=== PATIENT | female | born 1940 | race Caucasian/White ===

== ENCOUNTER 2017-10-02 09:43 | Emergency (ER) | payer MEDICARE ==
[~2017-10-02] VITALS: Ht 154.9 cm; Wt 63.5 kg
[2017-10-02] MEDS ORDERED: Bacitracin Oint UD TOPIC ONE (10:15)
[2017-10-02] MEDS ORDERED: Lidocaine 1% MPF 10mg/ml 5ml INJ ONE (10:15)
[2017-10-02] MEDS ORDERED: Bactrim-DS 1 tab ORAL ONE (10:15)
[2017-10-02 10:18] VITALS: BP 152/83
--- NOTE | 2017-10-02 10:55 | Emergency Room Report ---
History of Present Illness General Chief Complaint: Skin Rash/Abscess Source: Patient Present Illness HPI Patient presents with swelling and pain in her left middle finger. This started several days ago. She was seen by her stone gang sawyer who aspirated some clear fluid 2 days ago. Last night the finger got more swollen and painful. She could not sleep. There was no other drainage. There is no numbness. No fevers, chills, red streaks. The whole tip of the finger is painful, but more on the nail side. Pain rated 10/10, pressure and sharp aching. There is redness. No numbness. Tetanus > 10 years. No diabetes. H/O asthma. No dyspnea. Allergies: Coded Allergies: No Known Allergies (Unverified , 10/02/17) Patient History Past Medical History: see triage record Nursing Documentation-[facility] Hx Asthma: Yes Review of Systems Constitutional: Reports: see HPI Respiratory: Reports: see HPI Cardiovascular: Denies: chest pain Gastrointestinal: Denies: nausea Musculoskeletal: Reports: see HPI Skin: Reports: see HPI Neurological: Reports: see HPI Hematologic/Lymphatic: Denies: easy bleeding Physical Exam Vital Signs Date Time Temp Pulse Resp B/P (MAP) Pulse Ox O2 Delivery O2 Flow Rate FiO2 10/02/17 09:46 98.1 85 18 152/83 97 Room Air 98.1 Sp02 EP Interpretation: reviewed, normal General Appearance: well appearing, no apparent distress Head: normocephalic, atraumatic Eyes: bilateral eye normal inspection, bilateral eye PERRL ENT: hearing grossly normal, normal voice, moist mucus membranes Neck: full range of motion, supple Respiratory: no respiratory distress, speaking full sentences Cardiovascular #1: regular rate, rhythm Cardiovascular #2: 2+ radial (L) - cap fill fingertip normal Musculoskeletal: normal range of motion - slight decrease flexion due to tenseness of distal phalynx, other - no tendon tenderness with PROM however, decreased ROM of finger tip with swelling Neurologic: alert, motor strength/tone normal, sensory intact, speech normal Psychiatric: mood/affect normal Skin: other - erythema L middle finger tip Procedures Incision and Drainage Incision and Drainage : Consent: Verbal Site: L Blade Size: 11 I & D Procedure: betadine prep, sterile drapes applied, sterile dressing applied, gauze wick placed Wound Location: upper extremity Wound's Depth, Shape: superficial Wound Length (cm): 0 - 0.5 Wound Explored: contaminated - pus expressed Anesthesia: 1% Lidocaine - digital block Volume Anesthetic (ccs): 4 Splint Applied?: No Progress nail bed not involved Medical Decision Making Diagnostic Impression: Primary Impression: Abscess of finger Qualified Codes: L02.512 - Cutaneous abscess of left hand ER Course Patient with swelling and erythema with pain of L middle finger. This is not a paronychium. There is tenting of the lesion. I and D indicated. (Initially, consideration for felon, but exam against this - infection all dorsal.) Tendon not involved clinically at this time. She refuses tetanus vaccination ( risks and benefits explained). I and D performed with improvement and increased ROM. Will need close follow up. Told to return tomorrow for repeat evaluation and possible drain removal. Patient stable for outpatient observation and treatment. Last Vital Signs Date Time Temp Pulse Resp B/P (MAP) Pulse Ox O2 Delivery O2 Flow Rate FiO2 10/02/17 11:05 98.1 78 18 152/83 97 Room Air 98.1 Status: improved Disposition: HOME, SELF-CARE Condition: Improved Scripts Tramadol Hcl* (ULTRAM*) 50 Mg Tablet 50 MG ORAL Q6H PRN for For Pain, #6 TAB 0 Refills Prov: Clayton Kenney M.D. 10/02/17 Bacitracin (Bacitracin) 28.4 Gm Oint...g. 1 APPLIC TOPIC BID, #10 GM Prov: Clayton Kenney M.D. 10/02/17 Ibuprofen* (MOTRIN*) 600 Mg Tablet 600 MG ORAL Q6H PRN for For Pain, #16 TAB Prov: Clayton Kenney M.D. 10/02/17 Trimethoprim/Sulfamethoxazole 160/800* (BACTRIM DS TABLET*) 1 Each Tablet 1 TAB ORAL Q12H, #14 TAB 0 Refills Prov: Clayton Kneney M.D. 10/02/17 Referrals: NON PHYSICIAN (PCP) Clayton Kenney M.D. Oct 02, 2017 10:55
[2017-10-02] MEDS ORDERED: BACTRIM DS TAB1 EAC1 ORAL (10:58)
[2017-10-02] MEDS ORDERED: BACITRACIN15 GM TOPIC (10:58)
[2017-10-02] MEDS ORDERED: TRAMADOL HCL50 MG ORAL (10:58)
[2017-10-02] MEDS ORDERED: IBUPROFEN600 MG ORAL (10:58)
[2017-10-02 11:05] VITALS: BP 152/83
== END 2017-10-02 11:07 | disposition home or self-care (01) ==
LOC: EMR 10:12
DX: L02.512 Cutaneous abscess of left hand (principal); J45.909 Unspecified asthma, uncomplicated
CPT/HCPCS: 10060; 99283

== ENCOUNTER 2017-10-03 06:59 | Emergency (ER) | payer MEDICARE, BC ==
[~2017-10-03] VITALS: Ht 154.9 cm; Wt 63.5 kg
[~2017-10-03 06:59] MED LIST: BACITRACIN15 GM TOPIC; BACTRIM DS TAB1 EAC1 ORAL; IBUPROFEN600 MG ORAL; TRAMADOL HCL50 MG ORAL
[2017-10-03 07:09] VITALS: BP 159/77
[2017-10-03 07:31] VITALS: BP 159/77
--- NOTE | 2017-10-03 08:11 | Emergency Room Report ---
History of Present Illness General Chief Complaint: Wound Recheck/Suture Removal Source: Patient Present Illness HPI 77-year-old female presents ED for wound check. Patient is status post I and D of abscess to her left middle finger yesterday. Packing in place. Patient is here to have the wound evaluated. States she is taking antibiotics as prescribed. States pain is throbbing, 7 out of 10, nonradiating. Denies fevers or chills. Denies any discharge. No other aggravating relieving factors. Denies any other associated symptoms Allergies: Coded Allergies: No Known Allergies (Unverified , 10/02/17) Patient History Past Medical History: asthma Past Surgical History: none Pertinent Family History: none Social History: Denies: smoking, alcohol use, drug use Now: No Immunizations: UTD Reviewed Nursing Documentation: PMH: Agreed; PSxH: Agreed Nursing Documentation-PMH Hx Asthma: Yes Review of Systems All Other Systems: negative except mentioned in HPI Physical Exam Vital Signs Date Time Temp Pulse Resp B/P (MAP) Pulse Ox O2 Delivery O2 Flow Rate FiO2 10/03/17 07:02 98.0 85 18 159/77 97 Room Air 98.1 Sp02 EP Interpretation: reviewed, normal General Appearance: no apparent distress, alert, GCS 15, non-toxic Head: normocephalic Eyes: bilateral eye normal inspection, bilateral eye PERRL ENT: normal ENT inspection Neck: normal inspection Respiratory: normal inspection Cardiovascular #1: normal inspection Gastrointestinal: normal inspection Rectal: deferred Genitourinary: no CVA tenderness Musculoskeletal: swelling - L middle finger Neurologic: alert, oriented x3, responsive, motor strength/tone normal, sensory intact, speech normal Psychiatric: normal inspection Skin: other - erythema/induration L distal middle finger. packing in place dorsal aspect L middle finger. no discharge Lymphatic: normal inspection Medical Decision Making Diagnostic Impression: Primary Impression: Encounter for abscess packing removal Additional Impressions: Encounter for wound re-check Abscess of finger Qualified Codes: L02.512 - Cutaneous abscess of left hand ER Course Hospital Course 77-year-old F presents to ED for wound check. s/p I&D L middle finger abscess Clinical course Patient placed on stretcher. After initial history, physical exam reveals a elderly female in no acute distress. Dressing removed. There is some swelling and erythema to the distal aspect of the left middle finger. There is a packing in place. Patient states that appears unchanged Packing is removed. No discharge. Patient appears afebrile and nontoxic. I explained to the patient that antibiotics will take time to work and it is too soon to notice significant improvement. I will provide hand referral. patient given the option to return tomorrow for reevaluation Diagnosis - encounter for wound re-check,encounter for abscess packing removal, abscess of finger Stable and discharged to home. continue abx as directed. Followup with Hand. Return to ED if any signs of infection develop Last Vital Signs Date Time Temp Pulse Resp B/P (MAP) Pulse Ox O2 Delivery O2 Flow Rate FiO2 10/03/17 07:31 98.1 85 18 159/77 97 Room Air 98.1 Status: improved Disposition: HOME, SELF-CARE Condition: Stable Referrals: LEVI MÁRQUEZ M.D. NON PHYSICIAN (PCP) ELMO BLACKWELL Patient Instructions: Abscess, [id number] Jhon Orozco MD Oct 03, 2017 08:10
== END 2017-10-03 07:33 | disposition home or self-care (01) ==
LOC: EMR 07:17
DX: Z48.00 Encounter for change or removal of nonsurgical wound dressing (principal); L02.512 Cutaneous abscess of left hand
CPT/HCPCS: 99282

== ENCOUNTER 2018-04-02 14:48 | Emergency (ER) | payer MEDICARE, BC ==
[~2018-04-02] VITALS: Ht 154.9 cm; Wt 65.8 kg
[2018-04-02] MEDS ORDERED: NKM (14:53)
[2018-04-02 15:00] VITALS: BP 151/79
--- NOTE | 2018-04-02 15:00 | NUR ---
ED Nurse Note: Pt walked in to ER c/o rash on chest area which started this morning and itchness. pt aao x4 and calm and cooperative. skin clean and intact beside rash on chest.
--- NOTE | 2018-04-02 15:28 | Emergency Room Report ---
History of Present Illness General Chief Complaint: Skin Rash/Abscess Source: Patient Present Illness HPI Patient presents with rash on her abdomen and back. She has taken benadryl and this doesn't seem to affect the rash. She denies itching. No fevers, chills, difficulty swallowing, nausea, vomiting, joint pain, dizziness. This appeared yesterday and has worsened. She had a cardiac angiogram . She had this because of family history of heart disease rather than any chest symptoms. Allergy exposure ROS negative. H/O asthma - no wheezing. Seen by me last year with finger abscess which needed surgery. This has healed. Allergies: Coded Allergies: No Known Allergies (Unverified , 10/02/17) Patient History Past Medical History: see triage record Social History: Denies: smoking Social History Narrative from [place] - retired Last Menstrual Period: menopause Reviewed Nursing Documentation: PMH: Agreed; PSxH: Agreed Nursing Documentation-PMH Past Medical History: No History, Except For Hx Asthma: Yes Review of Systems All Other Systems: negative except mentioned in HPI Physical Exam Vital Signs Date Time Temp Pulse Resp B/P (MAP) Pulse Ox O2 Delivery O2 Flow Rate FiO2 04/02/18 14:51 97.9 81 18 191/91 97 Room Air Sp02 EP Interpretation: reviewed, normal General Appearance: well appearing, no apparent distress, GCS 15 Head: normocephalic, atraumatic Eyes: bilateral eye normal inspection, bilateral eye PERRL ENT: hearing grossly normal, no angioedema, normal voice Neck: full range of motion, supple Respiratory: chest non-tender, lungs clear, normal breath sounds, no respiratory distress, speaking full sentences Cardiovascular #1: normal inspection, regular rate, rhythm, no edema Cardiovascular #2: 2+ radial (R) Gastrointestinal: normal inspection Genitourinary: no CVA tenderness Musculoskeletal: back normal, digits/nails normal, gait/station normal, normal range of motion, no calf tenderness Neurologic: alert, oriented x3, normal gait, grossly normal Psychiatric: mood/affect normal Skin: other - maculopapular rash trunk, min erythema of lesions Medical Decision Making Diagnostic Impression: Primary Impression: Adverse reaction to contrast media Qualified Codes: T50.8X5A - Adverse effect of diagnostic agents, initial encounter ER Course Patient presents with maculopapular rash beginning 2 days after cardiac angiogram. DDX: allergic reaction, pityriasis rosea, intertrigo amongst others. Not anaphylaxis and not involving airway. Temporally, most likely contrast allergy. Patient does not want to take prednisone (but convinced to take at least one dose). Discussed need for follow up and consideration for checking renal function. She is planning on seeing her MD tomorrow. Patient stable for outpatient observation and treatment. Last Vital Signs Date Time Temp Pulse Resp B/P (MAP) Pulse Ox O2 Delivery O2 Flow Rate FiO2 04/02/18 15:39 98.2 75 20 152/79 100 Room Air Status: unchanged Disposition: HOME, SELF-CARE Condition: Stable Scripts Hydrocortisone/Aloe Vera 1%* (HYDROCORTISONE-ALOE 1% CREAM*) Y Cr 1 APPLIC TOPIC Q6H PRN for Itching, #30 GM Prov: Clayton Kenney MD 04/02/18 Diphenhydramine Hcl* (BENADRYL*) 25 Mg Capsule 25 MG ORAL Q6H PRN for Itching, #16 CAP Prov: Clayton Kenney MD 04/02/18 Clayton Kenney MD Apr 02, 2018 15:28
[2018-04-02] MEDS ORDERED: BENADRYL25 MG ORAL (15:33)
[2018-04-02] MEDS ORDERED: HYDROCORTISONE-30 GM TOPIC (15:33)
[2018-04-02 15:39] VITALS: BP 151/79
--- NOTE | 2018-04-02 15:41 | NUR ---
ER DISCHARGE NOTE: Patient is cleared to be discharged per ERMD, pt is aox4, on room air, with stable vital signs. pt was given dc and prescription instructions, pt was able to verbalize understanding, pt id band was removed. pt is able to ambulate with steady gait. pt took all belongings.
== END 2018-04-02 18:30 | disposition home or self-care (01) ==
LOC: EMR 18:06
DX: R21 Rash and other nonspecific skin eruption (principal); T50.8X5A Adverse effect of diagnostic agents, initial encounter; Y92.9 Unspecified place or not applicable
CPT/HCPCS: 99282; J7512

== ENCOUNTER → 2019-12-01 | Emergency (ER) | payer MEDICARE, BC ==
[~2019-12-01] VITALS: Ht 154.9 cm; Wt 62.6 kg
[~2019-12-01] MED LIST changes: +BENADRYL ALLERG25 M1 PO; +BENADRYL25 MG ORAL; +HYDROCORTISONE-30 GM TOPIC; +NKM; +PREDNISONE20 MG ORAL
--- NOTE | 2019-12-01 15:16 | NUR ---
ED Nurse Note: Pt ambulated to ED from home d/t generalized rashes and itching x 2 weeks. Pt was prescribed by her sawmill equipment operator with valtrex and had a shot of cortisone but states it did not work. Pt is AOx4, calm and cooperative to care. Pt's VSS, on RA, afebrile on triage.
[2019-12-01 15:20] VITALS: BP 170/88
--- NOTE | 2019-12-01 15:33 | Emergency Room Report ---
History of Present Illness General Chief Complaint: Allergies Source: Patient Present Illness HPI 79-year-old female with no nausea no past medical history here with complaint of 2 weeks of a pruritic rash all over body. Patient reported this started after she was given IV contrast as she has history of allergies to IV contrast. Patient denies any anaphylaxis, difficulty breathing or swallowing. Reports th at went to her direct marketing intern and was told that she has shingles as it was started on her right buttocks and now has spread all over. Denies any pain or tingling sensation. Valtrex was given with shot of dexamethasone however it did not help. Denies any new animals. Patient now has some redness noted on palms of hands, and around nailbed both on hands and feet. Reports that had a complete blood work done by primary doctor to find out the source of the reaction and all labs were within normal limit. Labs were done few days ago. Denies any chest pain shortness of breath. Denies any new medication intake, not around the house, or use of any new products. Reports that about 2 years ago she had a similar reaction after IV contrast was given. Has not yet been seen by an grinder operator. Patient has been applying hydrocortisone cream and Neosporin to the rashes is reports that she is scratching too much that they start bleeding. No Haven like lesions noted. denies fever/chills, denies URI symptoms Allergies: Coded Allergies: IODINE AND IODIDE CONTAINING PRODUC (Verified Allergy, Unknown, 12/01/19) COVID-19 Screening Contact w/high risk pt: No Experienced COVID-19 symptoms?: No COVID-19 Testing performed SUPERVISOR HOUSECLEANER: No Patient History Past Medical History: see triage record Past Surgical History: none Pertinent Family History: none Now: No Immunizations: UTD Reviewed Nursing Documentation: PMH: Agreed; PSxH: Agreed Nursing Documentation-PMH Past Medical History: No History, Except For Hx Asthma: Yes Review of Systems All Other Systems: negative except mentioned in HPI Physical Exam Vital Signs Date Time Temp Pulse Resp B/P (MAP) Pulse Ox O2 Delivery O2 Flow Rate FiO2 12/01/19 15:13 98.2 93 16 170/88 (115) 95 Room Air Sp02 EP Interpretation: reviewed, normal General Appearance: no apparent distress, alert, GCS 15, non-toxic Head: normocephalic, atraumatic Eyes: bilateral eye normal inspection, bilateral eye PERRL ENT: hearing grossly normal, normal pharynx, no angioedema, normal voice Neck: full range of motion, supple/symm/no masses Respiratory: normal inspection, lungs clear, normal breath sounds, no respiratory distress Cardiovascular #1: regular rate, rhythm, no edema Cardiovascular #2: 2+ carotid (R), 2+ carotid (L), 2+ radial (R), 2+ radial (L), 2+ dorsalis pedis (R), 2+ dorsalis pedis (L) Gastrointestinal: normal bowel sounds, non tender, soft, non-distended, no guarding, no rebound Rectal: deferred Genitourinary: no CVA tenderness Musculoskeletal: back normal, no calf tenderness Neurologic: alert, motor strength/tone normal, oriented x3, sensory intact, responsive, speech normal Psychiatric: judgement/insight normal, memory normal, mood/affect normal, no suicidal/homicidal ideation Skin: other - erythematous rash over right buttock, both arms, palms and feet Lymphatic: no adenopathy Medical Decision Making PA Attestation ALL Diagnosis and treatment plan reviewed and discussed with my supervising physician Dr. De La Fuente Diagnostic Impression: Primary Impression: Allergic reaction caused by a drug ER Course 79-year-old female with no nausea no past medical history here with complaint of 2 weeks of a pruritic rash all over body. Patient reported this started after she was given IV contrast as she has history of allergies to IV contrast. Patient denies any anaphylaxis, difficulty breathing or swallowing. Reports that went to her direct marketing intern and was told that she has shingles as it was started on her right buttocks and now has spread all over. Denies any pain or tingling sensation. Valtrex was given with shot of dexamethasone however it did not help. Denies any new animals. Patient now has some redness noted on palms of hands, and around nailbed both on hands and feet. Reports that had a complete blood work done by primary doctor to find out the source of the reaction and all labs were within normal limit. Labs were done few days ago. Denies any chest pain shortness of breath. Denies any new medication intake, not around the house, or use of any new products. Reports that about 2 years ago she had a similar reaction after IV contrast was given. Has not yet been seen by an grinder operator. Patient has been applying hydrocortisone cream and Neosporin to the rashes is reports that she is scratching too much that they start bleeding. No Haven like lesions noted. denies fever/chills, denies URI symptoms Ddx considered but are not limited to: Eczema, scabies, lice, allergic reaction, anaphylaxis Vital signs: are WNL, pt. is afebrile H&PE are most consistent with: Allergic reaction ORDERS: Prednisone p.o. as patient, Benadryl, albuterol ED INTERVENTIONS: None required at this time. DISCHARGE: At this time pt. is stable for d/c to home. Will provide printed patient care instructions, and any necessary prescriptions. Care plan and follow up instructions have been discussed with the patient prior to discharge. Advised patient to follow-up with grinder operator, take medication as directed, also be tested for autoimmune diseases, further evaluation needed as patient may be having an internal cause of this rash. If worsening symptoms return to emergency Last Vital Signs Date Time Temp Pulse Resp B/P (MAP) Pulse Ox O2 Delivery O2 Flow Rate FiO2 12/01/19 15:20 98.2 16 170/88 95 Room Air 12/01/19 15:13 93 Disposition: HOME, SELF-CARE Condition: Stable Scripts Hydrocortisone/Aloe (Hydrocortisone/Aloe 1% Cream*) Y Cr 1 APPLIC TOPIC Q6H PRN for Itching, #30 GM Prov: Kirill Reynoso 12/01/19 Diphenhydramine Hcl (BENADRYL ALLERGY) 25 Mg Tablet 25 MG PO BID, #20 TAB Prov: Kirill Reynoso 12/01/19 Prednisone* (PREDNISONE*) 20 Mg Tablet 40 MG ORAL DAILY for 5 Days, #10 TAB Prov: Kirill Reynoso 12/01/19 Patient Instructions: Allergies Additional Instructions: Follow-up with an grinder operator for allergy testing, also have your primary doctor test you for autoimmune diseases, if worsening symptom, anaphylaxis, difficulty breathing or swallowing return to the emergency room Kirill Reynoso Dec 01, 2019 15:33
[2019-12-01 15:40] VITALS: BP 159/78
--- NOTE | 2019-12-01 15:40 | NUR ---
ER DISCHARGE NOTE: Patient is cleared to be discharged per ERPA, pt is aox4, on room air, with stable vital signs. pt was given dc and prescription instructions, pt was able to verbalize understanding, pt id band removed. pt is able to ambulate with steady gait. pt took all belongings.
== END | disposition home or self-care (01) ==
LOC: EMR 15:46
DX: T78.49XA Other allergy, initial encounter (principal); T50.905A Adverse effect of unspecified drugs, medicaments and biological substances, initial encounter; X58.XXXA Exposure to other specified factors, initial encounter; Y92.9 Unspecified place or not applicable; Z91.041 Radiographic dye allergy status
CPT/HCPCS: 99282

== ENCOUNTER 2020-02-07 08:07 | Emergency (ER) | payer MEDICARE, BC ==
[~2020-02-07] VITALS: Ht 160 cm; Wt 68.0 kg
[2020-02-07 08:45] VITALS: BP 189/98
--- NOTE | 2020-02-07 08:46 | NUR ---
ED Nurse Note: walked in to ed c/o burning urination x3days. denies fever chills or back pain. urine collected and sent to lab. ermd at bedside. vss, ernesto, aaox4, ambulatory
--- NOTE | 2020-02-07 08:52 | Emergency Room Report ---
History of Present Illness General Chief Complaint: Female Urogenital Problems Source: Patient Present Illness HPI Disclaimer: Please note that this report is being documented using DRAGON technology. This can lead to erroneous entry secondary to incorrect interpretation by the dictating instrument. HPI: 79-year-old female presents for evaluation of dysuria. Symptoms present 3 days. Notes burning with urination. Denies hematuria. Denies abdominal pain or cramping. Denies vomiting or diarrhea or fevers. Took 2 days of amoxicillin she had leftover from a tooth infection. Somewhat improved her symptoms today. PMH: CAD, lupus PSH: Abdominal hernia repair Allergies: Iodine Social Hx: Reviewed Allergies: Coded Allergies: IODINE AND IODIDE CONTAINING PRODUC (Verified Allergy, Unknown, 12/01/19) COVID-19 Screening Contact w/high risk pt: No Experienced COVID-19 symptoms?: No COVID-19 Testing performed DIRECT CUSTOMER SERVICE REPRESENTATIVE: No Nursing Documentation-PMH Hx Cardiac Problems: Yes Hx Asthma: Yes - lupus Review of Systems All Other Systems: negative except mentioned in HPI Physical Exam Vital Signs Date Time Temp Pulse Resp B/P (MAP) Pulse Ox O2 Delivery O2 Flow Rate FiO2 02/07/20 08:40 98.1 82 18 201/100 (133) 98 Room Air General: Awake and alert, no acute distress HEENT: NC/AT. EOMI. Resp: Normal work of breathing Abdomen: Soft, nontender, nondistended. Skin: Intact. No abrasions, laceration or rash over the exposed skin MSK: Normal tone and bulk. Moving all extremities. No obvious deformity. Neuro: Awake and alert. Mentating appropriately Medical Decision Making Diagnostic Impression: Primary Impression: UTI (urinary tract infection) Additional Impression: Cystitis ER Course 79-year-old female presents for evaluation of dysuria. UTI versus cystitis versus pyelonephritis. Well-appearing and clinically appears to have a urinary tract infection. Labs show elevation in leukocyte esterase and white cells but few bacteria. This may be confounded by the patient taking amoxicillin over the past few days. Will put on Macrobid. Follow-up with her PMD. Laboratory Tests Test 02/07/20 08:35 Urine Color Pale yellow Urine Appearance Clear Urine pH 5 (4.5-8.0) Urine Specific [place] 1.010 (1.005-1.035) Urine Protein Negative (NEGATIVE) Urine Glucose (UA) Negative (NEGATIVE) Urine Ketones Negative (NEGATIVE) Urine Blood Negative (NEGATIVE) Urine Nitrite Negative (NEGATIVE) Urine Bilirubin Negative (NEGATIVE) Urine Urobilinogen Normal MG/DL (0.0-1.0) Urine Leukocyte Esterase 1+ (NEGATIVE) H Urine RBC 0-2 /HPF (0 - 2) Urine WBC 5-10 /HPF (0 - 2) H Urine Squamous Epithelial Cells Few /LPF (NONE/OCC) Urine Bacteria Few /HPF (NONE) Last Vital Signs Date Time Temp Pulse Resp B/P (MAP) Pulse Ox O2 Delivery O2 Flow Rate FiO2 02/07/20 08:45 98.3 76 18 189/98 98 Room Air Disposition: HOME, SELF-CARE Condition: Stable Scripts Phenazopyridine Hcl* (PYRIDIUM*) 200 Mg Tablet 200 MG ORAL THREE TIMES A DAY for 3 Days, #10 TAB 0 Refills Prov: Mike Garcia MD 02/07/20 Nitrofurantoin Monohyd/M-Cryst* (MACROBID 100 MG*) 100 Mg Capsule 100 MG ORAL EVERY 12 HOURS for 5 Days, #10 CAP Prov: Mike Garcia MD 02/07/20 Referrals: NON PHYSICIAN (PCP) Mike Garcia MD Feb 07, 2020 08:52
[2020-02-07] MEDS ORDERED: NITROFURANTOIN100 M2 ORAL (08:54)
[2020-02-07 09:31] LABS: APPEARANCE,URINE CLEAR; BILIRUBIN, URINE NEGATIVE (NEGATIVE); COLOR,URINE PALE YELLOW; GLUCOSE, URINE (UA) NEGATIVE (NEGATIVE); KETONES,URINE NEGATIVE (NEGATIVE); LEUKOCYTE ESTERASE ,URINE 1+ (NEGATIVE); NITRITE,URINE NEGATIVE (NEGATIVE); PH,URINE 5 (4.5-8.0); PROTEIN,URINE NEGATIVE (NEGATIVE); UROBILINOGEN,URINE NORMAL MG/DL (0.0-1.0)
[2020-02-07] MEDS ORDERED: PHENAZOPYRIDIN200 MG ORAL (09:36)
[2020-02-07 09:40] VITALS: BP 148/86
--- NOTE | 2020-02-07 09:40 | NUR ---
ER DISCHARGE NOTE: Patient is cleared to be discharged per ERMD, pt is aox4, on room air, with stable vital signs. pt was given dc and prescription instructions, pt was able to verbalize understanding, pt id band removed without complications. pt is able to ambulate with steady gait. pt took all belongings.
== END 2020-02-07 09:40 | disposition home or self-care (01) ==
LOC: EMR 08:42
DX: N39.0 Urinary tract infection, site not specified (principal); J45.909 Unspecified asthma, uncomplicated; I25.10 Atherosclerotic heart disease of native coronary artery without angina pectoris; Z88.8 Allergy status to other drugs, medicaments and biological substances
CPT/HCPCS: 81003; 99283

== ENCOUNTER → 2020-02-13 | Emergency (ER) | payer MEDICARE, BC ==
[~2020-02-13] VITALS: Ht 157.5 cm; Wt 64.4 kg
[~2020-02-13] MED LIST changes: +MONISTAT 35 GM VG; +NITROFURANTOIN100 M2 ORAL; +PHENAZOPYRIDIN100 MG ORAL; +PHENAZOPYRIDIN200 MG ORAL
[2020-02-13 13:51] VITALS: BP 154/81
--- NOTE | 2020-02-13 13:51 | NUR ---
ED Nurse Note: Pt walked in to ED c/o burning urination. Pt was seen here last 02/07/20 for the same sx and was dc with Macrobid. Pt was seen by her OB and was prescribed with Sulfa atb but the pt stated she does not want to take it. Pt is requesting for Macrobid. AAOx4, no SOB.
[2020-02-13 14:36] LABS: APPEARANCE,URINE CLEAR; BILIRUBIN, URINE NEGATIVE (NEGATIVE); COLOR,URINE PALE YELLOW; GLUCOSE, URINE (UA) NEGATIVE (NEGATIVE); KETONES,URINE NEGATIVE (NEGATIVE); LEUKOCYTE ESTERASE ,URINE NEGATIVE (NEGATIVE); NITRITE,URINE NEGATIVE (NEGATIVE); PH,URINE 5 (4.5-8.0); PROTEIN,URINE NEGATIVE (NEGATIVE); UROBILINOGEN,URINE NORMAL MG/DL (0.0-1.0)
--- NOTE | 2020-02-13 14:58 | Emergency Room Report ---
History of Present Illness General Chief Complaint: Female Urogenital Problems Source: Patient Present Illness HPI 79-year-old female presents to the emergency department complaining of 7 out of 10 severity dysuria as well as constant burning/itchy discomfort in the vaginal area x1 week. Patient reports that she was being treated with Macrobid last week for UTI. Patient states she still had some symptoms and saw her OB who after examination prescribed her Bactrim. Patient states that she took one Bactrim and reports that her symptoms are not worse. Patient also reports that her OB gave her estrogen cream as well. Patient reports past medical history of lupus. She denies hematuria, urinary frequency, low back pain, fevers or chills. Patient denies abdominal tenderness. She denies vaginal discharge or swollen tender lymph nodes. Allergies: Coded Allergies: IODINE AND IODIDE CONTAINING PRODUC (Verified Allergy, Unknown, 12/01/19) COVID-19 Screening Contact w/high risk pt: No Experienced COVID-19 symptoms?: No COVID-19 Testing performed [place] [employer]: Yes - 2 months ago COVID-19 Screening: Negative COVID-19 COVID-19 Testing Source: clinic Patient History Past Medical History: other - Lupus Now: No Reviewed Nursing Documentation: PMH: Agreed; PSxH: Agreed Nursing Documentation-PMH Hx Cardiac Problems: Yes Hx Asthma: Yes - lupus Review of Systems All Other Systems: negative except mentioned in HPI Physical Exam Vital Signs Date Time Temp Pulse Resp B/P (MAP) Pulse Ox O2 Delivery O2 Flow Rate FiO2 02/13/20 13:44 98.4 96 19 154/81 (105) 98 Room Air Sp02 EP Interpretation: reviewed, normal General Appearance: no apparent distress, alert, GCS 15, non-toxic Head: normocephalic, atraumatic Eyes: bilateral eye normal inspection, bilateral eye PERRL ENT: hearing grossly normal, normal voice Neck: full range of motion Respiratory: lungs clear, normal breath sounds, speaking full sentences Cardiovascular #1: regular rate, rhythm Gastrointestinal: normal bowel sounds, non tender, soft, non-distended, no guar ding Rectal: deferred Genitourinary: normal inspection, no CVA tenderness, deferred - Genital exam deferred by patient as she just had one by her OB Musculoskeletal: back normal, normal range of motion, gait/station normal, non- tender Neurologic: alert, motor strength/tone normal, oriented x3, sensory intact, responsive, speech normal Psychiatric: judgement/insight normal Skin: normal color Lymphatic: no adenopathy Medical Decision Making PA Attestation Dr. Tejada is my supervising Physician whom patient management has been discussed with. Diagnostic Impression: Primary Impression: Vaginitis Qualified Codes: N76.0 - Acute vaginitis ER Course 79-year-old female presents to the emergency department complaining of 7 out of 10 severity dysuria as well as constant burning/itchy discomfort in the vaginal area x1 week. Patient reports that she was being treated with Macrobid last week for UTI. Patient states she still had some symptoms and saw her OB who after examination prescribed her Bactrim. Patient states that she took one Bactrim and reports that her symptoms are not worse. Patient also reports that her OB gave her estrogen cream as well. Patient reports past medical history of lupus. She denies hematuria, urinary frequency, low back pain, fevers or chills. Patient denies abdominal tenderness. She denies vaginal discharge or swollen tender lymph nodes. Ddx considered but are not limited to UTi , Pyelo, STI, Stone, Cystitis, vaginal laceration, vaginitis. Vital signs: are WNL, pt. is afebrile H& PE are most consistent with: Vaginitis ORDERS: - UA labs are attached : All Normal ED INTERVENTIONS: -None at this time. --I discussed with this patient that she had a normal urinalysis I also printed out the results and went over them with her in person. I discussed with this patient that I suspect possible yeast infection as she just finished a course of antibiotics. I also discussed with patient that ultimately it may have been vaginitis secondary to hormonal imbalance/menopause. Patient disclosed that her doctor did place her on Estrogel 2 days ago and she has enough for 2 weeks. I discussed with this patient that she should continue that medication at night and she can use the miconazole cream during the day. I discussed with patient that as she is currently taking Plaquenil which is a QT prolonging agent I do not feel that her symptoms are severe enough to place her on an oral antifungal at this time. DISCHARGE: At this time pt. is stable for d/c to home. Will provide printed patient care instructions, and any necessary prescriptions. Care plan and follow up instructions have been discussed with the patient prior to discharge. discussed with the patient prior to discharge. Labs Test 02/13/20 14:20 Urine Color Pale yellow Urine Appearance Clear Urine pH 5 (4.5-8.0) Urine Specific [place] 1.010 (1.005-1.035) Urine Protein Negative (NEGATIVE) Urine Glucose (UA) Negative (NEGATIVE) Urine Ketones Negative (NEGATIVE) Urine Blood Negative (NEGATIVE) Urine Nitrite Negative (NEGATIVE) Urine Bilirubin Negative (NEGATIVE) Urine Urobilinogen Normal MG/DL (0.0-1.0) Urine Leukocyte Esterase Negative (NEGATIVE) Last Vital Signs Date Time Temp Pulse Resp B/P (MAP) Pulse Ox O2 Delivery O2 Flow Rate FiO2 02/13/20 13:51 98.4 96 19 154/81 98 Room Air Status: improved Disposition: HOME, SELF-CARE Condition: Stable Scripts Phenazopyridine Hcl* (PYRIDIUM*) 100 Mg Tablet 100 MG ORAL THREE TIMES A DAY for 3 Days, #9 TAB Prov: Tatum Munguia 02/13/20 Miconazole Nitrate (Monistat 3) 15 Gm Crm.pf.rc 5 GM VG DAILY for 3 Days, #15 GM Prov: Tatum Munguia 02/13/20 Referrals: NON PHYSICIAN (PCP) Patient Instructions: Vaginitis Additional Instructions: Take medications as directed. Follow up with a OBGYN within 3-5 days, even if your symptoms have resolved. Return sooner to ED if new symptoms occur, or current symptoms become worse. - Please note that this Emergency Department Report was dictated using [employer] transcriptionist technology software, occasionally this can lead to erroneous entry secondary to interpretation by the dictation equipment. Tatum Munguia Feb 13, 2020 14:58
== END | disposition home or self-care (01) ==
LOC: EMR 14:50
DX: N76.0 Acute vaginitis (principal); J45.909 Unspecified asthma, uncomplicated; Z88.8 Allergy status to other drugs, medicaments and biological substances
CPT/HCPCS: 81003; 99283